=== PATIENT | female | born 1960 | race Caucasian/White ===

== ENCOUNTER 2016-08-29 10:00 | Outpatient (CLI) | payer MEDICARE, MEDICAID ==
[~2016-08-29] VITALS: Ht 160 cm; Wt 113.4 kg
[~2016-08-29 10:00] MED LIST: ASP325TEC PO; CYCL10TA9 PO; ERGO400T3 PO; GARL1TAB PO; HYDR-3812 PO; LVT.15T PO; METF500T4 PO; NAPR-243 PO; OMEG300C3 PO; PRD20T PO
[2016-08-29] MEDS ORDERED: OMG1KC PO (10:20)
[2016-08-29] MEDS ORDERED: ASPI-586 PO (10:20)
[2016-08-29] MEDS ORDERED: LEVO175T5 PO (10:20)
== END 2016-08-29 10:21 ==
LOC: PREOP 10:00
PROVIDERS: ATTEND Surgery Pediatric Surgery
DX: Z01.818 Encounter for other preprocedural examination (principal); Z12.11 Encounter for screening for malignant neoplasm of colon

== ENCOUNTER 2016-08-30 09:26 | Day surgery (SDC) | payer MEDICARE, MEDICAID ==
[~2016-08-30] VITALS: Ht 160 cm; Wt 113.4 kg
[~2016-08-30 09:26] MED LIST changes: +ASPI-586 PO; +LEVO175T5 PO; +OMG1KC PO
[2016-08-30 09:35] VITALS: BP 155/96
--- NOTE | 2016-08-30 09:41 | Conscious Sedation/ASA ---
Conscious Sedation Pre-Proced Time Reviewed: 09:40 ASA Class: 2 Airway Mallampati Classification: (grayling appropriate class) I. II. III, IV Lungs Heart ASA score ASA 1: a normal healthy patient ASA 2: a patient with a mild systemic disease (mid diabetes, controlled hypertension, obesity ASA 3: a patient with a severe systemic disease that limits activity (angina , COPD, prior Myocardial infarction) ASA 4: a patient with an incapacitating disease that is a constant threat to life (CHF, renal failure) ASA 5: a moribund patient not expected to survive 24 hrs. (ruptured aneurysm) ASA 6: a declared brain patient whose organs are being harvested. For emergent operations, add the letter E after the classification Grade 2 Sedation Plan: Analgesia, Amnesia, Plan communicated to team members, Discussed options with patient/fam, Discussed risks with patient/fam Note The patient is an appropriate candidate to undergo the planned procedure, sedation, and anesthesia. The patient immediately re-assessed prior to indication. SOFIA DIEZ MD Aug 30, 2016 9:41 am
--- NOTE | 2016-08-30 09:42 | Progress Note-Pre Operative ---
Pre-Operative Progress Note H&P Reviewed The H&P was reviewed, patient examined and no changes noted. Date H&P Reviewed: Aug 30, 2016 Time H&P Reviewed: 09:40 Pre-Operative Diagnosis: screening colonoscopy SOFIA DIEZ MD Aug 30, 2016 9:42 am
[2016-08-30] MEDS ORDERED: NALOXONE 0.4 MG/ML 1 ML (NARCAN) VIAL IVP PRN (09:45)
[2016-08-30] MEDS ORDERED: NS IV 500 ML 500 ML IV ONE (09:45)
[2016-08-30] MEDS ORDERED: morphine INJ 10 MG/ML 1ML (SYR OR VIAL) IV PRN (09:45)
[2016-08-30] MEDS ORDERED: ONDANSETRON 4 MG/2 ML (SDV) Z0FRAN IV PRN (09:45)
[2016-08-30] MEDS ORDERED: ACETAMINOPHEN 325 MG TABLET/CAPLET (TYLENOL) PO PRN (09:45)
[2016-08-30] MEDS ORDERED: HYDROcodone/APAP 5 MG/325 MG (LORTAB) TAB PO PRN (09:45)
[2016-08-30] MEDS ORDERED: FLUMAZENIL (ROMAZICON) 0.1 MG/ML 5 ML VIAL INJ PRN (09:45)
[2016-08-30] MEDS ORDERED: fentaNYL INJECTION 100 MCG/2 ML AMP ONE ×3 (10:09→10:33)
[2016-08-30] MEDS ORDERED: MIDAZOLAM 2 MG/2 ML (VERSED) VIAL ONE ×8 (10:09→10:34)
[2016-08-30] MEDS ORDERED: LIDOCAINE JELLY 2% (XYLOCAINE) 5 ML TUBE ONE (10:09)
[2016-08-30] MEDS: MIDAZOLAM 2 MG/2 ML (VERSED) VIAL IVP PRN ×5 (10:25→10:44)
[2016-08-30] MEDS: fentaNYL INJECTION 100 MCG/2 ML AMP IVP PRN ×4 (10:26→10:46)
[2016-08-30] MEDS ORDERED: LIDOCAINE 4% INJ (XYLOCAINE) 5ML AMP TOP ONE (11:15)
--- NOTE | 2016-08-30 11:20 | Progress Note-Post Operative ---
Post-Operative Progess Note Surgeon (s)/Automobile Accessories Installer (s) Surgeon SOFIA DIEZ MD Automobile Accessories Installer: none Pre-Operative Diagnosis screening colonoscopy Post-Operative Diagnosis chronic stage 2 ext and int hemorrhoids. Post-Op Procedure Note Date of Procedure: Aug 30, 2016 Name of Procedure Performed: Colonoscopy Description of the Procedure: colonoscopy Findings of the Procedure . Anesthesia Type CS Estimated blood loss (mL): minimal Specimen(s) collected/removed . SOFIA DIEZ MD Aug 30, 2016 11:20 am
--- NOTE | 2016-08-30 11:21 | Discharge Inst-Surgical ---
D/C Lap Instructions-CHARY Follow Up 10 years Activity as tolerated High Fiber Diet 25g or more per day Avoid Alcohol, Caffeine, Spicy [place] and Acid foods. Drink 64 fluid oz or more of fluids per day. Symptoms to Report: Fever over 101 degree F, Nausea/Vomiting If any problems/questions: Contact your physician or go to Emergency Room SOFIA DIEZ MD Aug 30, 2016 11:21 am
[2016-08-30 11:25] VITALS: BP 105/57
[2016-08-30 11:55] VITALS: BP 128/82
[2016-08-30 12:05] VITALS: BP 128/82
--- NOTE | 2016-08-31 06:31 | OPERATIVE REPORT ---
PROCEDURE PHYSICIAN: SOFIA MYLES DATE OF PROCEDURE: 08/30/2016 ATTENDING AUTOMATIC CENTRIFUGAL STATION OPERATOR: Darcy Munoz APRN. PREOPERATIVE DIAGNOSIS: Screening colonoscopy. POSTOPERATIVE DIAGNOSES: 1. Chronic, stage II external and internal hemorrhoids. 2. The remainder of the rectum and colon were normal. PROCEDURE: Colonoscopy. SURGEON: Dr. Myles. ANESTHESIA: Conscious sedation. ESTIMATED BLOOD LOSS: Minimal. FINDINGS: 1. Chronic, stage II external and internal hemorrhoids, not actively edematous, nor inflamed and no bleeding. 2. The remainder of the rectum and colon were normal. There were no polyps identified. DISPOSITION: The patient tolerated procedure well. Ms. Murtaza Kat is a 56-year-old female in need of a screening colonoscopy. She has not had a colonoscopy up to this point in her life. She reports for the most part, she does not have any major issues with diarrhea nor constipation and does have a bowel movement on a regular basis. She also does not report any red blood per rectum nor any dark tarry stools. She also does not report any family history of colon cancer. PROCEDURE: The patient was brought to the endoscopy suite, laid in the left lateral decubitus position. After adequate IV pain and sedative medications and conscious sedation anesthesia, a digital rectal examination was performed. Mild chronic, stage II external and internal hemorrhoids were identified which were not actively edematous, nor inflamed and no bleeding. Normal sphincter tone was felt and there were no palpable masses. The endoscope was then intubated and the anus and the rectum gently insufflated. The endoscope was then advanced through the valves of [place] the rectum with no polyps or any neoplasms identified. We then proceeded through the sigmoid colon where no diverticulosis identified. The endoscope was then advanced to the remainder of the descending, transverse, and ascending colon to the cecum. These segments were normal as well. There were no polyps or any neoplasms identified throughout the colon or rectum. The endoscope was then slowly withdrawn while taking a second look and suctioning of residual air with no additional findings. The patient tolerated the procedure well. We will have her continue with medical management with a high fiber diet with at least 25 grams of fiber per day to promote soft stools on a daily basis. She does not need another colonoscopy for another 10 years; however, sooner if any problems arise. Job ID: [id number] Dictated Date: 08/30/2016 11:03:05 Shoe Repairer Helper Date: 08/31/2016 06:26:50 / gonzález
--- OUTSIDE RECORDS SUMMARY | 2016-09-24 04:16 | XMS REPORT | Continuity of Care Document ---
Author Author [facility] Organization [facility] Address Unknown Phone Unavailable Care Team Providers Care It Consultant Name Role Phone KEYA COOK DO PP Insurance Providers Payer Name Policy Number Subscriber Name Relationship Medicaid [place] [id number] Ermelinda Powers Tawny Self / Same As Patient Wps Medicare [id number] Ermelinda Powers S Self / Same As Patient Advance Directives Directive Response Recorded Date Advance Directives N 11/30/12 12:55pm Problems No Known Problems or Medical conditions. Social History History Response Recorded Date/Time Alcohol Use Denies Use 11/30/12 12:55pm Recreational Drug Use N 11/30/12 12:55pm Allergies, Adverse Reactions, Alerts Allergen Type Severity Reaction Last Updated No Known Drug Allergies 11/30/12 Medications Medication Dose Units Route Sig Qty Days Naproxen (Naprosyn) 1 Each PO TID PRN 20 Cyclobenzaprine HCl (Cyclobenzaprine Hcl) 1 Each PO Q8HR PRN 15 Aspirin (Aspirin Ec 325 Mg) 325 Mg PO DAILY Levothyroxine Sodium (Levothyroxine 150 Mcg Tab) 150 Mcg PO DAILY Response Recorded Date/Time Status not known Unknown Results Test Date Result Interp. Ref. Range BUN/Creatinine Ratio December 18, 2007 12:45pm 12 - Basophils # (Auto) December 18, 2007 12:45pm 0.0 10^3/uL N 0.0-0.1 Basophils (%) (Auto) December 18, 2007 12:45pm 0 % N 0-10 Blood Urea Nitrogen December 18, 2007 12:45pm 12 MG/DL N 7-18 Calcium Level December 18, 2007 12:45pm 8.7 MG/DL N 8.5-10.1 Carbon Dioxide Level December 18, 2007 12:45pm 26 MMOL/L N 21-32 Chloride Level December 18, 2007 12:45pm 106 MMOL/L N 101-110 Cholesterol Level October 10, 2005 11:35am 212 MG/DL H -200 Creatinine December 18, 2007 12:45pm 1.0 MG/ DL N 0.6-1.3 Eosinophils # (Auto) December 18, 2007 12:45pm 0.1 10^3/uL N 0.0-0.3 Eosinophils (%) (Auto) December 18, 2007 12:45pm 1 % N 0-10 Glucose Level December 18, 2007 12:45pm 111 MG/DL N 70-126 HDL Cholesterol October 10, 2005 11:35am 36 MG/ML N 35-60 Hematocrit December 18, 2007 12:45pm 37 % N 35-52 Hemoglobin December 18, 2007 12:45pm 12.3 G/ DL N 11.5-16.0 Hemoglobin A1c October 10, 2005 11:35am 6.2 % - LDL Cholesterol October 10, 2005 11:35am 160 MG/DL H 0-129 Lymphocytes # (Auto) December 18, 2007 12:45pm 1.1 X 10^3 N 1.0-4.0 Lymphocytes (%) (Auto) December 18, 2007 12:45pm 9 % L 12-44 Mean Corpuscular Hemoglobin December 18, 2007 12:45pm 29 PG N 25-34 Mean Corpuscular Hemoglobin Concent December 18, 2007 12:45pm 33 G/DL N 32-36 Mean Corpuscular Volume December 18, 2007 12:45pm 88 FL N 80-99 Mean Platelet Volume December 18, 2007 12:45pm 9.9 FL N 7.4-10.4 Monocytes # (Auto) December 18, 2007 12:45pm 0.7 X 10^3 N 0.0-1.0 Monocytes (%) (Auto) December 18, 2007 12:45pm 5 % N 0-12 Neutrophils # (Auto) December 18, 2007 12:45pm 11.3 X 10^3 H 1.8-7.8 Neutrophils (%) (Auto) December 18, 2007 12:45pm 85 % H 42-75 Platelet Count December 18, 2007 12:45pm 312 10^3/uL N 130-400 Potassium Level December 18, 2007 12:45pm 4.2 MMOL/L N 3.6-5.0 Red Blood Count December 18, 2007 12:45pm 4.25 10^6/uL L 4.35-5.85 Red Cell Distribution Width December 18, 2007 12:45pm 14.2 % N 10.0-14.5 Sodium Level December 18, 2007 12:45pm 142 MMOL/L N 135-145 Thyroid Stimulating Hormone (TSH) November 15, 2006 4:55pm 105.01 UIU/ML PH 0.34- 5.60 Thyroxine (T4) November 15, 2006 4:55pm 4.6 l UG/DL - Total Triiodothyronine November 15, 2006 4:55pm 1.2 NG/ML - Triglycerides Level October 10, 2005 11:35am 81 MG/DL N 30.0-150.0 Urine Bacteria December 18, 2007 12:15pm Large H - Urine Bilirubin December 18, 2007 12:15pm Negative - Urine Casts December 18, 2007 12:15pm None - Urine Clarity December 18, 2007 12:15pm Slightly cloudy - Urine Color December 18, 2007 12:15pm Yellow - Urine Crystals December 18, 2007 12:15pm None - Urine Culture Indicated December 18, 2007 12:15pm Yes - Urine Glucose (UA) December 18, 2007 12:15pm Negative - Urine Ketones December 18, 2007 12:15pm Negative - Urine Leukocyte Esterase December 18, 2007 12:15pm 2+ H - Urine Mucus December 18, 2007 12:15pm Negative - Urine Nitrite December 18, 2007 12:15pm Positive H - Urine Protein December 18, 2007 12:15pm Negative - Urine RBC December 18, 2007 12:15pm 10-20 / HPF - Urine Specific [place] December 18, 2007 12:15pm 1.010 L - Urine Squamous Epithelial Cells December 18, 2007 12:15pm 0-2 - Urine Urobilinogen December 18, 2007 12:15pm Normal MG/DL - Urine WBC December 18, 2007 12:15pm 50-100 / HPF H - Urine pH December 18, 2007 12:15pm 6.0 - VLDL Cholesterol October 10, 2005 11:35am 16 MG/DL N 5-40 White Blood Count December 18, 2007 12:45pm 13.2 10^3/uL H 4.3-11.0 Estimat Glomerular Filtration Rate December 18, 2007 12:45pm > 60 - Urine RBC (Auto) December 18, 2007 12:15pm 4 + H - Procedures Procedure Code Date Urine Culture 12/18/07 Encounters Encounter Location Date/Time Registered Emergency Room [facility] 11/30/12 12:49pm Departed Emergency Room [facility] 12 :00am
--- OUTSIDE RECORDS SUMMARY | 2016-09-24 04:16 | XMS REPORT | Continuity of Care Document ---
Author Author [facility] Organization [facility] Address Unknown Phone Unavailable Allergies Active Description Code Type Severity Reaction Onset Reported/Identified Relationship to Patient Clinical Status Yes No Known Drug Allergies [id number] Drug Allergy Unknown N/ A 11/30/2012 Yes prednisone [id number] Drug Allergy Unknown RASH 08/29/2016 Medications Problems Date Dx Coded Attending Type Code Diagnosis Diagnosed By 11/30/2012 TEJAS ANGULO DO Ot 840.9 SPRAIN SHOULDER/ARM NOS 11/30/2012 TEJAS ANGULO DO Ot 959.2 SHLDR/UPPER ARM INJ NOS 11/30/2012 TEJAS ANGULO DO Ot E000.8 OTHER EXTERNAL CAUSE STATUS 11/30/2012 TEJAS ANGULO DO Ot E888.9 FALL NOS 01/09/2016 SO GALLARDO Ot M54.2 CERVICALGIA 01/09/2016 SO GALLARDO Ot S16.1XXA STRAIN OF MUSCLE, FASCIA AND TENDON AT N 01/09/2016 SO GALLARDO Ot X58.XXXA EXPOSURE TO OTHER SPECIFIED FACTORS, INI 01/09/2016 SO GALLARDO Ot Y93.B9 ACTIVITY, OTHER INVOLVING MUSCLE STRENGT 01/09/2016 SO GALLARDO Ot Y99.8 OTHER EXTERNAL CAUSE STATUS 01/11/2016 SO GALLARDO Ot M54.2 CERVICALGIA 01/11/2016 SO GALLARDO Ot S16.1XXA STRAIN OF MUSCLE, FASCIA AND TENDON AT N 01/11/2016 SO GALLARDO Ot X58.XXXA EXPOSURE TO OTHER SPECIFIED FACTORS, INI 01/11/2016 SO GALLARDO Ot Y93.B9 ACTIVITY, OTHER INVOLVING MUSCLE STRENGT 01/11/2016 SO GALLARDO Ot Y99.8 OTHER EXTERNAL CAUSE STATUS 01/24/2016 SO GALLARDO Ot M54.2 CERVICALGIA 01/24/2016 SO GALLARDO Ot S16.1XXA STRAIN OF MUSCLE, FASCIA AND TENDON AT N 01/24/2016 SO GALLARDO Ot X58.XXXA EXPOSURE TO OTHER SPECIFIED FACTORS, INI 01/24/2016 SO GALLARDO Ot Y93.B9 ACTIVITY, OTHER INVOLVING MUSCLE STRENGT 01/24/2016 SO GALLARDO Ot Y99.8 OTHER EXTERNAL CAUSE STATUS 03/30/2016 MADL, TERESA L DEVELOPMENT MECHANIC Ot N64.4 MASTODYNIA 03/30/2016 MADL, TERESA L DEVELOPMENT MECHANIC Ot N64.4 MASTODYNIA 04/04/2016 MADL, TERESA L DEVELOPMENT MECHANIC Ot N64.4 MASTODYNIA 04/06/2016 MADL, TERESA L DEVELOPMENT MECHANIC Ot N64.4 MASTODYNIA 05/30/2016 MADL, TERESA L DEVELOPMENT MECHANIC Ot N64.4 MASTODYNIA 08/29/2016 SOFIA DIEZ MD Ot Z01.818 ENCOUNTER FOR OTHER PREPROCEDURAL EXAMIN 08/29/2016 SOFIA DIEZ MD Ot Z12.11 ENCOUNTER FOR SCREENING FOR MALIGNANT NE 08/29/2016 SOFIA DIEZ MD Ot Z01.818 ENCOUNTER FOR OTHER PREPROCEDURAL EXAMIN 08/29/2016 SOFIA DIEZ MD Ot Z12.11 ENCOUNTER FOR SCREENING FOR MALIGNANT NE 08/29/2016 SOFIA DIEZ MD Ot Z01.818 ENCOUNTER FOR OTHER PREPROCEDURAL EXAMIN 08/29/2016 SOFIA DIEZ MD Ot Z12.11 ENCOUNTER FOR SCREENING FOR MALIGNANT NE 08/29/2016 SOFIA DIEZ MD Ot Z01.818 ENCOUNTER FOR OTHER PREPROCEDURAL EXAMIN 08/29/2016 SOFIA DIEZ MD Ot Z12.11 ENCOUNTER FOR SCREENING FOR MALIGNANT NE 08/30/2016 MADL, TERESA L DEVELOPMENT MECHANIC Ot N64.4 MASTODYNIA 08/30/2016 SOFIA DIEZ MD Ot E11.9 TYPE 2 DIABETES MELLITUS WITHOUT COMPLIC 08/30/2016 SOFIA DIEZ MD Ot K64.1 SECOND DEGREE HEMORRHOIDS 08/30/2016 SOFIA DIEZ MD Ot Z12.11 ENCOUNTER FOR SCREENING FOR MALIGNANT NE 08/30/2016 SOFIA DIEZ MD Ot Z01.818 ENCOUNTER FOR OTHER PREPROCEDURAL EXAMIN 08/30/2016 SOFIA DIEZ MD Ot Z12.11 ENCOUNTER FOR SCREENING FOR MALIGNANT NE 08/31/2016 SOFIA DIEZ MD Ot E11.9 TYPE 2 DIABETES MELLITUS WITHOUT COMPLIC 08/31/2016 SOFIA DIEZ MD Ot K64.1 SECOND DEGREE HEMORRHOIDS 08/31/2016 SOFIA DIEZ MD Ot Z12.11 ENCOUNTER FOR SCREENING FOR MALIGNANT NE 09/05/2016 TERESA JARRETT Ot N64.4 MASTODYNIA Procedures Results Test Result Range Urine beta human chorionic gonadotropin (hCG) measurement - 08/30/16 09:30 Urine beta human chorionic gonadotropin (hCG) measurement NEGATIVE NEGATIVE Capillary blood glucose measurement by glucometer (mass/volume) - 08/30/16 09: 50 Capillary blood glucose measurement by glucometer (mass/volume) 115 mg/dL 70-110 Encounters ACCT No. Visit Date/Time Discharge Status Pt. Type Provider Facility Loc./Unit Complaint [id number] 08/30/2016 09:26:00 2016 12:10:00 DIS Outpatient SOFIA DIEZ MD [facility] ENDO SCREENING [id number] 08/29/2016 10:00:00 2016 10:21:00 DIS Outpatient SOFIA DIEZ MD [facility] PREOP SCREENING [id number] 01/09/2016 17:32:00 2015 20:02:00 DIS Emergency SO GALLARDO [facility] ER LT NECK PAIN [id number] 11/30/2012 12:49:00 2012 14:42:00 DIS Emergency TEJAS ANGULO DO K [facility] ER [id number] 03/29/2016 13:18:00 ACT Outpatient TERESA JARRETTP [facility] RAD BREAST PAIN RT [id number] 03/22/2016 14:44:00 PEN Preadmit TERESA JARRETT DEVELOPMENT MECHANIC [facility] REHAB NECK AND THORACIC PAIN
== END 2016-08-30 12:10 | disposition home or self-care (01) ==
LOC: DELPENDDIS → ENDO 09:26
PROVIDERS: ATTEND Surgery Pediatric Surgery
DX: Z12.11 Encounter for screening for malignant neoplasm of colon (principal); K64.1 Second degree hemorrhoids; E11.9 Type 2 diabetes mellitus without complications
CPT/HCPCS: 82962; 84703

== ENCOUNTER → 2016-12-20 | Outpatient (CLI) | payer MEDICARE, MEDICAID ==
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
== END ==
LOC: RAD 11:40
PROVIDERS: ATTEND Nurse Practitioner Family
DX: H74.91 Unspecified disorder of right middle ear and mastoid (principal)
CPT/HCPCS: 70450

== ENCOUNTER → 2017-10-03 | Outpatient (CLI) | payer MEDICARE, MEDICAID ==
[~2017-10-03] MED LIST changes: +ACHD5005 PO; +ATOR10TA66; +AZIT250T PO; -GARL1TAB PO; +GARL1TAB2 PO; -HYDR-3812 PO; -METF500T4 PO; +METF500T5 PO
--- NOTE | 2017-10-03 14:29 | Diagnostic Imaging Report ---
INDICATION: Routine screening. COMPARISON: 03/29/2016. TECHNIQUE: Bilateral 2D and 3D screening mammography was performed with CAD. FINDINGS: Both breasts show marked parenchymal heterogeneity and increased density, limiting the sensitivity of mammography. There are scattered benign-appearing calcifications present. No spiculated mass or malignant appearing microcalcifications are seen. The axillae are unremarkable. IMPRESSION: No mammographic features suspicious for malignancy are identified. ACR BI-RADS Category 2: Benign findings. Result letter will be mailed to the patient. Note: At least 10% of breast cancer is not imaged by mammography. Dictated by: Dictated on workstation # [id number]
== END ==
LOC: RAD 09:18
PROVIDERS: ATTEND Nurse Practitioner Family
DX: Z12.31 Encounter for screening mammogram for malignant neoplasm of breast (principal)
CPT/HCPCS: 77067

== ENCOUNTER 2017-11-01 13:25 | Emergency (ER) | payer MEDICARE, MEDICAID ==
[~2017-11-01] VITALS: Ht 160 cm; Wt 105.7 kg
[~2017-11-01 13:25] MED LIST changes: -ATOR10TA66; -AZIT250T PO
[2017-11-01] MEDS ORDERED: ATOR10TA66 (13:40)
[2017-11-01] MEDS ORDERED: RT-ALBUTEROL/IPRATROPIUM 3 ML (DUONEB) VIAL INH ONE (14:15)
--- NOTE | 2017-11-01 14:55 | Diagnostic Imaging Report ---
INDICATION: Shortness of breath. EXAMINATION: Portable erect AP chest at 2:23 p.m. FINDINGS: The heart size is within normal limits although the heart does seem somewhat more prominent than noted on the prior exam of 11/30/2012. The lungs are clear. There is no sign of failure, pneumonia or a pleural effusion. The mediastinum is not widened. The osseous structures are intact. IMPRESSION: There is no evidence for active disease. Dictated by: Dictated on workstation # [id number]
--- NOTE | 2017-11-01 15:06 | ED Respiratory ---
General Chief Complaint: Respiratory Problems Stated Complaint: SOB,ASTHMA Nursing Triage Note: PMH OF ASTHMA HAS HAD COUGH AND FEELING SOA . INHALER NOT HELPING. History of Present Illness Date Seen by Provider: November 01, 2017 Time Seen by Provider: 14:00 Initial Comments 57-year-old female presents for shortness of air and nonproductive cough. She feels as though she has congestion that she's been unable to produce any phlegm. She has a history of asthma but no problems at this time. She used her Ventolin inhaler at noon today with minimal improvement in her symptoms. Timing/Duration: just prior to arrival Severity: mild Prior Episodes/Possible Cause: occasional episodes Modifying Factors: Improves With Albuterol Inhaler Associated Symptoms: chest pain/soreness, cough, shortness of breath Allergies and Home Medications Allergies Coded Allergies: prednisone (Verified Allergy, Unknown, RASH, 08/29/16) Home Medications Aspirin 81 Mg Tablet.dr, 81 MG PO DAILY, (Reported) Azithromycin 250 Mg Tablet, 250 MG PO UD TAKE 2 TABLETS TODAY, THEN TAKE 1 TABLET DAILY FOR 4 MORE DAYS Prescribed by: PHILLIP COOK on 11/01/17 1511 Garlic 1 Each Tablet, 1 EACH PO DAILY, (Reported) Levothyroxine Sodium 175 Mcg Tablet, 175 MCG PO DAILY, (Reported) Metformin HCl 500 Mg Tablet, 500 MG PO BID, (Reported) Golf 3 Polyunsat Fatty Acids 1,000 Mg Cap, 1,000 MG PO DAILY, (Reported) Patient Home Medication List Home Medication List Reviewed: Yes Review of Systems Constitutional: no symptoms reported, see HPI Respiratory: see HPI, cough, short of breath All Other Systems Reviewed Negative Unless Noted: Yes Past Ojlgola-Vfmukp-Vccfdc Hx Past Med/Social Hx: Reviewed Nursing Past Med/Soc Hx Patient Social History Alcohol Use: Denies Use Recreational Drug Use: No Smoking Status: Never a Smoker Recent Foreign Travel: No Contact w/Someone Who Travel: No Recent Infectious Disease Expo: No Recent Hopitalizations: No Immunizations Up To Date Tetanus Booster (TDap): Unknown Date of Influenza Vaccine: Mar 31, 2016 Seasonal Allergies Seasonal Allergies: Yes Past Medical History Surgeries: Yes Gallbladder Respiratory: Yes Asthma, COPD, Emphysema Cardiac: Yes Coronary Artery Disease, High Cholesterol Neurological: Yes Headaches /Migraines Reproductive Disorders: No ICE CREAM SERVER History: Menopausal Gastrointestinal: No Musculoskeletal: Yes Arthritis Endocrine: Yes Hypothyroidsim, Diabetes, Non-Insulin dep Cataract Cancer: No Psychosocial: No Integumentary: No Blood Disorders: No Family Medical History No Pertinent Family Hx Physical Exam Vital Signs Vital Signs - First Documented 11/01/17 11/01/17 13:41 14:27 Temp 98.5 Pulse 62 Resp 18 B/P (MAP) 213/123 (153) Pulse Ox 99 O2 Delivery Room Air Capillary Refill : Less Than 3 Seconds General Appearance: WD/WN, no apparent distress Eyes: Bilateral Eye Normal Inspection, Bilateral Eye PERRL, Bilateral Eye EOMI HEENT: PERRL/EOMI, normal ENT inspection, TMs normal, pharynx normal Neck: non-tender, full range of motion Respiratory: chest non-tender, no respiratory distress, no accessory muscle use , decreased breath sounds Cardiovascular: normal peripheral pulses, regular rate, rhythm, diastolic murmur Gastrointestinal: normal bowel sounds, non tender, soft Neurologic/Psychiatric: no motor/sensory deficits, alert, normal mood/affect Skin: normal color, warm/dry Progress/Results/Core Measures Suspected Sepsis Recent Fever Within 48 Hours: No Infection Criteria Present: None New/Unexplained Altered Menta: No Sepsis Screen: No Definite Risk SIRS Temperature:98.5 Pulse: 62 Respiratory Rate: 18 Blood Pressure 213 /123 Mean: 153 Results/Orders My Orders Orders - PHILLIP COOK Chest 1 View, Ap/Pa Only (11/01/17 14:14) Albuterol/Ipra Inhalation Soln (Duoneb I (11/01/17 14:15) Svn Small Volume Nebulizer (11/01/17 14:14) Medications Given in ED Current Medications Medications Dose Ordered Sig/Alejandrina Route Start Time Stop Time Status Last Admin Dose Admin Albuterol/ Ipratropium 3 ml ONCE ONCE INH 11/01/17 14:15 11/01/17 14:16 DC 11/01/17 14:26 3 ML Vital Signs/I&O 11/01/17 11/01/17 11/01/17 13:41 14:27 15:18 Temp 98.5 Pulse 62 75 Resp 18 18 B/P (MAP) 213/123 (153) 115/84 Pulse Ox 99 98 O2 Delivery Room Air Room Air Room Air Capillary Refill : Less Than 3 Seconds Blood Pressure Mean: 153 Diagnostic Imaging Diagonstic Imaging: Xray Plain Films/CT/US/NM/MRI: chest Comments NAME: [facility] REC#: [id number] PT STATUS: REG ER : 1960 PHYSICIAN: PHILLIP COOK ADMIT DATE: 11/01/17/ER Draft Date of Exam:11/01/17 CHEST 1 VIEW, AP/PA ONLY INDICATION: Shortness of breath. EXAMINATION: Portable erect AP chest at 2:23 p.m. FINDINGS: The heart size is within normal limits although the heart does seem somewhat more prominent than noted on the prior exam of 11/30/2012. The lungs are clear. There is no sign of failure, pneumonia or a pleural effusion. The mediastinum is not widened. The osseous structures are intact. IMPRESSION: There is no evidence for active disease. Dictated on workstation # [id number] Dict: 11/01/17 1439 Trans: 11/01/17 1454 [facility] [id number] Interpreted by: TED JOHNSON MD Electronically signed by: Reviewed: Reviewed by Me Departure Impression Primary Impression: Bronchitis Disposition: HOME, SELF-CARE Condition: Improved Departure-Patient Inst. Decision time for Depature: 15:00 Referrals: ABEL LONDONO DO (PCP) Primary Care Physician TERESA JARRETT (Family) Primary Care Physician Patient Instructions: Acute Bronchitis, Adult (DC) Add. Discharge Instructions: Increase water intake. Continue to use your inhaler every 4 hours. Take medication as prescribed. Follow up with your primary care provider, if you get worse or symptoms do not improve. Return to emergency department for new, urgent health care needs. All discharge instructions reviewed with patient and/or family. Voiced understanding. Scripts Azithromycin (Zithromax) 250 Mg Tablet 250 MG PO UD, #6 TAB TAKE 2 TABLETS TODAY, THEN TAKE 1 TABLET DAILY FOR 4 MORE DAYS Prov: HPILLIP COKO 11/01/17 PHILLIP COOK November 01, 2017 15:06
[2017-11-01] MEDS ORDERED: AZIT250T PO (15:11)
[2017-11-01 15:18] VITALS: BP 115/84
== END 2017-11-01 15:18 | disposition home or self-care (01) ==
LOC: EDUNIT# 13:25 → ER 13:26
DX: J40 Bronchitis, not specified as acute or chronic (principal); J43.9 Emphysema, unspecified; I25.10 Atherosclerotic heart disease of native coronary artery without angina pectoris; E78.00 Pure hypercholesterolemia, unspecified; G43.909 Migraine, unspecified, not intractable, without status migrainosus; E03.9 Hypothyroidism, unspecified; E11.9 Type 2 diabetes mellitus without complications; Z88.8 Allergy status to other drugs, medicaments and biological substances; Z79.82 Long term (current) use of aspirin; Z79.84 Long term (current) use of oral hypoglycemic drugs
CPT/HCPCS: 71045; 94640

== ENCOUNTER 2019-03-13 13:23 | Emergency (ER) | payer MEDICARE, MEDICAID ==
[~2019-03-13] VITALS: Ht 165 cm; Wt 100.0 kg
[~2019-03-13 13:23] MED LIST changes: +ATOR10TA66; +AZIT250T PO; +METF-397 PO; -METF500T5 PO
[2019-03-13] MEDS ORDERED: NS IV 1000 ML 1,000 ML ONE (13:37)
--- NOTE | 2019-03-13 13:37 | ED Cardiac General ---
History of Present Illness General Chief Complaint: Chest Pain Stated Complaint: CHEST PAIN Source: patient Exam Limitations: no limitations History of Present Illness Date Seen by Provider: Mar 13, 2019 Time Seen by Provider: 13:35 Initial Comments To ER per private vehicle from home with reports of palpitations. She denies chest pain she denies shortness of breath. This began last night she states that her pulse was very fast. She didn't come in at that time because she didn't want to wake her mother. She states it still feels like her heart is beating hard but not as bad as it was last night. She had a similar episode 8-9 months ago. She just finished an antibiotic for urinary tract infection yesterday. She continues to have suprapubic pressure. Timing/Duration: changing over time Severity: moderate Activities at Onset: none Prior CP/Workup: no prior chest pain NTG SL BUFFERER: No ASA po BUFFERER: Yes (1 baby aspirin this morning at 8 AM) Associated Systoms: No Chest Pain, No Cough, No Syncope Allergies and Home Medications Allergies Coded Allergies: prednisone (Verified Allergy, Unknown, RASH, 08/29/16) Home Medications Aspirin 81 Mg Tablet.dr, 81 MG PO DAILY, (Reported) Azithromycin 250 Mg Tablet, 250 MG PO UD TAKE 2 TABLETS TODAY, THEN TAKE 1 TABLET DAILY FOR 4 MORE DAYS Prescribed by: PHILLIP COOK on 11/01/17 1511 Garlic 1 Each Tablet, 1 EACH PO DAILY, (Reported) Levothyroxine Sodium 175 Mcg Tablet, 175 MCG PO DAILY, (Reported) Metformin HCl 500 Mg Tablet, 500 MG PO BID, (Reported) [place] 3 Polyunsat Fatty Acids 1,000 Mg Cap, 1,000 MG PO DAILY, (Reported) Patient Home Medication List Home Medication List Reviewed: Yes Review of Systems Review of Systems Constitutional: see HPI EENTM: No Symptoms Reported Respiratory: No Symptoms Reported; Denies Cough, Denies Shortness of Air Cardiovascular: See HPI; Denies Chest Pain; Irregular Heart Rate, Palpitations Gastrointestinal: See HPI; Denies Abdominal Pain, Denies Nausea Genitourinary: No Symptoms Reported Musculoskeletal: no symptoms reported Skin: no symptoms reported Psychiatric/Neurological: No Symptoms Reported Endocrine: No Symptoms Reported Hematologic/Lymphatic: No Symptoms Reported Past Czbqxwu-Fifqvz-Apswmt Hx Patient Social History Recent Hopitalizations: No Immunizations Up To Date Tetanus Booster (TDap): Unknown Date of Influenza Vaccine: Mar 31, 2016 Seasonal Allergies Seasonal Allergies: Yes Past Medical History Surgeries: Yes Gallbladder Respiratory: Yes Asthma, COPD, Emphysema Cardiac: Yes Coronary Artery Disease, High Cholesterol Neurological: Yes Headaches /Migraines Reproductive Disorders: No AIRLINE SECURITY REPRESENTATIVE History: Menopausal Gastrointestinal: No Musculoskeletal: Yes Arthritis Endocrine: Yes Hypothyroidsim, Diabetes, Non-Insulin dep Cataract Cancer: No Psychosocial: No Integumentary: No Blood Disorders: No Family Medical History No Pertinent Family Hx Physical Exam Vital Signs Vital Signs - First Documented 03/13/19 13:25 O2 Delivery Room Air Capillary Refill : Height, Weight, BMI Height: 5'3.00" Weight: 233lbs. 0.0oz. [id number]; 44.3 BMI Method:Stated General Appearance: No Apparent Distress, WD/WN HEENT: PERRL/EOMI, TMs Normal Respiratory: No Accessory Muscle Use, No Respiratory Distress Cardiovascular: Regular Rate, Rhythm, Normal Peripheral Pulses Gastrointestinal: Normal Bowel Sounds, Non Tender, Soft; No Tenderness Extremity: Normal Capillary Refill, Normal Inspection Neurologic/Psychiatric: Alert, Oriented x3 Skin: Normal Color, Warm/Dry Progress/Results/Core Measures Results/Orders Lab Results Laboratory Tests Test 03/13/19 13:30 03/13/19 14:47 Range/Units White Blood Count 9.1 4.3-11.0 10^3/uL Red Blood Count 4.52 4.35-5.85 10^6/uL Hemoglobin 13.5 11.5-16.0 G/DL Hematocrit 41 35-52 % Mean Corpuscular Volume 90 80-99 FL Mean Corpuscular Hemoglobin 30 25-34 PG Mean Corpuscular Hemoglobin Concent 33 32-36 G/DL Red Cell Distribution Width 13.0 10.0-14.5 % Platelet Count 316 130-400 10^3/uL Mean Platelet Volume 10.5 H 7.4-10.4 FL Neutrophils (%) (Auto) 59 42-75 % Lymphocytes (%) (Auto) 29 12-44 % Monocytes (%) (Auto) 8 0-12 % Eosinophils (%) (Auto) 4 0-10 % Basophils (%) (Auto) 0 0-10 % Neutrophils # (Auto) 5.3 1.8-7.8 X 10^3 Lymphocytes # (Auto) 2.6 1.0-4.0 X 10^3 Monocytes # (Auto) 0.8 0.0-1.0 X 10^3 Eosinophils # (Auto) 0.4 H 0.0-0.3 10^3/uL Basophils # (Auto) 0.0 0.0-0.1 10^3/uL Sodium Level 138 135-145 MMOL/L Potassium Level 4.6 3.6-5.0 MMOL/L Chloride Level 106 98-107 MMOL/L Carbon Dioxide Level 23 21-32 MMOL/L Anion Gap 9 5-14 MMOL/L Blood Urea Nitrogen 16 7-18 MG/DL Creatinine 0.95 0.60-1.30 MG/DL Estimat Glomerular Filtration Rate 60 BUN/Creatinine Ratio 17 Glucose Level 164 H 70-105 MG/DL Calcium Level 10.0 8.5-10.1 MG/DL Corrected Calcium 10.2 H 8.5-10.1 MG/DL Magnesium Level 1.8 1.6-2.4 MG/DL Total Bilirubin 0.6 0.1-1.0 MG/DL Aspartate Amino Transf (AST/SGOT) 60 H 5-34 U/L Alanine Aminotransferase (ALT/SGPT) 64 H 0-55 U/L Alkaline Phosphatase 194 H 40-136 U/L Myoglobin 37.4 10.0-92.0 NG/ML Troponin I < 0.028 <0.028 NG/ML B-Type Natriuretic Peptide 99.9 <100.0 PG/ML Total Protein 7.9 6.4-8.2 GM/DL Albumin 3.8 3.2-4.5 GM/DL Thyroid Stimulating Hormone (TSH) 0.27 L 0.35-4.94 UIU/ML Free Thyroxine 1.35 0.70-1.48 NG/DL Prothrombin Time 14.5 12.2-14.7 SEC INR Comment 1.1 0.8-1.4 Activated Partial Thromboplast Time 28 24-35 SEC D-Dimer 0.38 0.00-0.49 UG/ML My Orders Orders - MAXI LUU APRN Ekg Tracing (03/13/19 13:26) Cbc With Automated Diff (03/13/19 13:33) Magnesium (03/13/19 13:33) Chest 1 View, Ap/Pa Only (03/13/19 13:33) Cardiac Profile 1 (03/13/19 13:33) Comprehensive Metabolic Panel (03/13/19 13:33) Myoglobin Serum (03/13/19 13:33) Protime With Inr (03/13/19 13:33) Partial Thromboplastin Time (03/13/19 13:33) O2 (03/13/19 13:33) Monitor-Rhythm Ecg Trace Only (03/13/19 13:33) Lipid Panel (03/14/19 06:00) Ed Iv/Invasive Line Start (03/13/19 13:33) BNP (03/13/19 13:33) Aspirin Chewable Tablet (Baby Aspirin Ch (03/13/19 13:45) Fibrin Degradation Products (03/13/19 13:33) Thyroid Stimulating Hormone (03/13/19 13:37) Free T4 (Free Thyroxine) (03/13/19 13:37) Ns Iv 1000 Ml (Sodium Chloride 0.9%) (03/13/19 13:37) Ns Iv 1000 Ml (Sodium Chloride 0.9%) (03/13/19 13:45) Medications Given in ED Current Medications Medications Dose Ordered Sig/Alejandrina Route Start Time Stop Time Status Last Admin Dose Admin Aspirin 324 mg ONCE ONCE PO 03/13/19 13:45 03/13/19 13:46 DC 03/13/19 13:42 324 MG Vital Signs/I&O 03/13/19 13:25 O2 Delivery Room Air Departure Impression Primary Impression: Palpitations Disposition: 01 HOME, SELF-CARE Condition: Stable Departure-Patient Inst. Decision time for Depature: 13:37 Referrals: ABEL LONDONO DO (PCP) Primary Care Physician TERESA JARRETT (Family) Primary Care Physician VEE ASKEW MD FACP FACC CCDS Edel MITCHELL MD, BASHAR J MD Patient Instructions: Palpitations (DC) Add. Discharge Instructions: Call one of the cardiologists listed to make an appointment to be seen for follow-up. Return to ER for any concerns or worsening symptoms. All discharge instructions reviewed with patient and/or family. Voiced understanding. MAXI LUU APRN Mar 13, 2019 13:37
[2019-03-13 13:44] LABS: BASOPHILS % (AUTO) 0 % (0-10); EOSINOPHILS # (AUTO) 0.4 10^3/uL (0.0-0.3); EOSINOPHILS % (AUTO) 4 % (0-10); HEMATOCRIT 41 % (35-52); HEMOGLOBIN 13.5 G/DL (11.5-16.0); LYMPHOCYTES # (AUTO) 2.6 X 10^3 (1.0-4.0); LYMPHOCYTES % (AUTO) 29 % (12-44); MEAN CORPUSCULAR HEMOGLOBIN 30 PG (25-34); MEAN CORPUSCULAR HGB CONC 33 G/DL (32-36); MEAN CORPUSCULAR VOLUME 90 FL (80-99); MEAN PLATELET VOLUME 10.5 FL (7.4-10.4); MONOCYTES # (AUTO) 0.8 X 10^3 (0.0-1.0); MONOCYTES % (AUTO) 8 % (0-12); NEUTROPHILS # (AUTO) 5.3 X 10^3 (1.8-7.8); NEUTROPHILS % (AUTO) 59 % (42-75); PLATELET COUNT 316 10^3/uL (130-400); WHITE BLOOD COUNT 9.1 10^3/uL (4.3-11.0)
[2019-03-13] MEDS ORDERED: ASPIRIN 81 MG CHEW (CHILDREN'S ASA) PO ONE (13:45)
[2019-03-13] MEDS ORDERED: NS IV 1000 ML 1,000 ML IV SCH (13:45)
[2019-03-13 14:03] LABS: ALANINE AMINOTRANSFERASE 64 U/L (0-55); ALBUMIN 3.8 GM/DL (3.2-4.5); ALKALINE PHOSPHATASE 194 U/L (40-136); BILIRUBIN,TOTAL 0.6 MG/DL (0.1-1.0); BUN/CREATININE RATIO 17; CARBON DIOXIDE 23 MMOL/L (21-32); CHLORIDE 106 MMOL/L (98-107); CREATININE SERUM 0.95 MG/DL (0.60-1.30); GFR ESTIMATED 60; GLUCOSE 164 MG/DL (70-105); MAGNESIUM 1.8 MG/DL (1.6-2.4); POTASSIUM 4.6 MMOL/L (3.6-5.0); SODIUM 138 MMOL/L (135-145); TOTAL PROTEIN 7.9 GM/DL (6.4-8.2)
[2019-03-13 14:25] LABS: FREE T4 (FREE THYROXINE) 1.35 NG/DL (0.70-1.48)
--- NOTE | 2019-03-13 14:29 | Diagnostic Imaging Report ---
EXAMINATION: Portable erect AP chest at 2:15 p.m. INDICATION: Chest pain. FINDINGS: The heart size is within normal limits and stable when compared to 11/01/2017. The lungs are clear. There is no evidence for failure, pneumonia, or for a pleural effusion. The mediastinum is not widened. The osseous structures are intact. IMPRESSION: There is no evidence for an acute cardiopulmonary abnormality. When compared to the prior study, there has been no significant change. Dictated by: Dictated on workstation # [id number]
[2019-03-13 15:07] LABS: INR 1.1 (0.8-1.4); PROTHROMBIN TIME PATIENT 14.5 SEC (12.2-14.7)
[2019-03-13 15:55] LABS: BILIRUBIN,URINE NEGATIVE (NEGATIVE); CLARITY,URINE CLEAR; COLOR,URINE YELLOW; GLUCOSE, URINE (UA) NEGATIVE (NEGATIVE); KETONES,URINE NEGATIVE (NEGATIVE); LEUKOCYTE ESTERASE ,URINE NEGATIVE (NEGATIVE); NITRITE,URINE POSITIVE (NEGATIVE); PH,URINE 5 (5-9); PROTEIN,URINE NEGATIVE (NEGATIVE); UROBILINOGEN,URINE NORMAL (NORMAL)
[2019-03-13 16:04] LABS: BACTERIA,URINE TRACE /HPF; RBC,URINE RARE /HPF; WBC,URINE 0-2 /HPF
[2019-03-13 16:14] VITALS: BP 155/96
== END 2019-03-13 16:14 | disposition home or self-care (01) ==
LOC: EDUNIT# 13:23 → ER 13:25
DX: R00.2 Palpitations (principal); J43.9 Emphysema, unspecified; E11.9 Type 2 diabetes mellitus without complications; I25.10 Atherosclerotic heart disease of native coronary artery without angina pectoris; E78.00 Pure hypercholesterolemia, unspecified; G43.909 Migraine, unspecified, not intractable, without status migrainosus; E03.9 Hypothyroidism, unspecified; Z88.8 Allergy status to other drugs, medicaments and biological substances; Z79.82 Long term (current) use of aspirin; Z79.84 Long term (current) use of oral hypoglycemic drugs
CPT/HCPCS: 36415; 71045; 80053; 81000; 83735; 83874; 83880; 84439; 84443; 84484; 85025; 85379; 85610; 85730; 87088; 93005; 93041; 96360

== ENCOUNTER → 2019-07-22 | Outpatient (CLI) | payer MEDICARE, MEDICAID ==
[~2019-07-22] MED LIST changes: +HOLD METFORMIN - RECEIVED CONTRAST 20 ML VIAL IV SCH; +IOHEXOL 350 MG/ML 100 ML (OMNIPAQUE 350) VIAL IV ONE; +NS 100 ML (IVPB) BAG IV ONE
[2019-07-22 10:15] LABS: BUN/CREATININE RATIO 23; CREATININE SERUM 0.94 MG/DL (0.60-1.30); GFR ESTIMATED > 60
--- NOTE | 2019-07-22 11:09 | Diagnostic Imaging Report ---
INDICATION: Screening The current study was also evaluated with a Computer Aided Detection (CAD) system. 3-D Tomographic imaging was also performed. Comparison made with prior examination from 10/03/17 and 03/29/2016. FINDINGS: The fibroglandular tissue is heterogeneously dense bilaterally. There are benign type calcifications. There is no dominant mass, spiculated lesion or suspicious calcification identified. There is an unchanged well-circumscribed density in the posterior central right breast on CC projection. The skin, nipples and axilla are unremarkable. IMPRESSION: Category 2 benign. ACR BI-RADS Category 2: Benign findings. Result letter will be mailed to the patient. Note: At least 10% of breast cancer is not imaged by mammography. Dictated by: Dictated on workstation # [id number]
--- NOTE | 2019-07-22 14:37 | Diagnostic Imaging Report ---
PROCEDURE: CT abdomen and pelvis with contrast. TECHNIQUE: Multiple contiguous axial images were obtained through the abdomen and pelvis after administration of intravenous contrast. Auto Exposure Controls were utilized during the CT exam to meet ALARA standards for radiation dose reduction. INDICATION: Umbilical hernia. COMPARISON: No prior examination available for comparison. FINDINGS: The lung bases are clear. Heart size is normal. Liver is normal in size without focal lesions. Gallbladder is unremarkable. There is no biliary ductal dilatation. Spleen is normal. Pancreas and adrenal glands are unremarkable. There are some cortical scarring in the left kidney. Right kidney is normal. Aorta is nonaneurysmal. Bowel gas pattern is nonspecific. No free air. No ascites. There are no focal inflammatory changes. There is no evidence of umbilical hernia. There are mild degenerative changes in the spine. IMPRESSION: Cortical scarring in the left kidney. No evidence of umbilical hernia. No other acute abnormality in the abdomen or pelvis. Dictated by: Dictated on workstation # [id number]
== END ==
LOC: RAD 09:42
PROVIDERS: ATTEND Nurse Practitioner Family
DX: Z12.31 Encounter for screening mammogram for malignant neoplasm of breast (principal); K42.9 Umbilical hernia without obstruction or gangrene
CPT/HCPCS: 36415; 74177; 77067; 82565; 84520

== ENCOUNTER → 2020-01-14 | Outpatient (CLI) | payer MEDICARE, MEDICAID ==
[~2020-01-14] MED LIST changes: -HOLD METFORMIN - RECEIVED CONTRAST 20 ML VIAL IV SCH; -IOHEXOL 350 MG/ML 100 ML (OMNIPAQUE 350) VIAL IV ONE; -NS 100 ML (IVPB) BAG IV ONE
[2020-01-14 10:22] LABS: ALANINE AMINOTRANSFERASE 30 U/L (0-55); ALKALINE PHOSPHATASE 122 U/L (40-136); BILIRUBIN,TOTAL 0.5 MG/DL (0.1-1.0); BUN/CREATININE RATIO 22; CALCIUM 9.4 MG/DL (8.5-10.1); CARBON DIOXIDE 22 MMOL/L (21-32); CHLORIDE 109 MMOL/L (98-107); CREATININE SERUM 0.94 MG/DL (0.60-1.30); GFR ESTIMATED > 60; GLUCOSE 129 MG/DL (70-105); POTASSIUM 4.1 MMOL/L (3.6-5.0); SODIUM 140 MMOL/L (135-145); TOTAL PROTEIN 7.7 GM/DL (6.4-8.2)
--- NOTE | 2020-01-14 16:18 | Diagnostic Imaging Report ---
EXAMINATION: CT angiography aorta and lower extremity with runoffs. TECHNIQUE: Multiple contiguous axial images were obtained through the abdomen , pelvis and lower extremities after administration of intravenous contrast. 3D MIP reconstructed CTA acquisition were then performed. All CT scans use one or more of the following dose optimizing techniques: automated exposure control, MA and/or KvP adjustment based on a patient size and exam type, or iterative reconstruction. HISTORY: Pain in left calf. COMPARISON: None available. FINDINGS: Vascular findings: Abdominal aorta: No stenosis. Celiac artery: No stenosis. Superior mesenteric artery: No stenosis. Right renal artery: No stenosis. Left renal artery: No stenosis. Inferior [place]enter[place] artery: No stenosis. Right common iliac artery: No stenosis. Right external iliac artery: No stenosis. Right common femoral artery: No stenosis. Right superficial femoral artery: No stenosis. Right deep femoral artery: No stenosis. Right popliteal artery: No stenosis. Right posterior tibial artery: No stenosis. Right anterior tibial artery: No stenosis. Right peroneal artery: No stenosis. Right ankle and foot vessels: No stenosis. Left common iliac artery: No stenosis. Left external iliac artery: No stenosis. Left common femoral artery: No stenosis. Left superficial femoral artery: No stenosis. Left deep femoral artery: No stenosis. Left popliteal artery: No stenosis. Left posterior tibial artery: No stenosis. Left anterior tibial artery: No stenosis. Left peroneal artery: No stenosis. Left ankle and foot vessels: No stenosis. Other findings: The liver is normal without focal lesion. There is no biliary ductal dilation. Gallbladder is normal. Visualized portions of the pancreas are normal. Adrenal glands are normal. There is atrophy of the left kidney. No suspicious renal lesions. There is no hydronephrosis. Urinary bladder is normal. Visualized bowel is normal in caliber without obstruction or inflammation. No free fluid or air. No abdominal or pelvic lymphadenopathy. There are no suspicious osseous lesions. IMPRESSION: 1. Normal vasculature in both lower extremities. Three-vessel runoff is seen to the ankles. Dictated by: Dictated on workstation # [id number]
== END ==
LOC: RAD 09:28
DX: M79.662 Pain in left lower leg (principal)
CPT/HCPCS: 36415; 73706; 80053

== ENCOUNTER → 2020-09-24 | Outpatient (CLI) | payer MEDICARE, MEDICAID | LOC: CARD 10:47 | PROVIDERS: ATTEND Nurse Practitioner Family | DX: I48.91 Unspecified atrial fibrillation (principal) | CPT/HCPCS: 93005 ==

== ENCOUNTER 2020-10-26 09:11 | Outpatient (RCR) | payer MEDICARE, MEDICAID | END 2021-01-24 | disposition home or self-care (01) | LOC: CARD 09:11 | PROVIDERS: ATTEND Internal Medicine Cardiovascular Disease | DX: I10 Essential (primary) hypertension (principal); I34.0 Nonrheumatic mitral (valve) insufficiency; R00.1 Bradycardia, unspecified | CPT/HCPCS: 93225; 93226; 93306 ==

== ENCOUNTER → 2020-10-26 | Outpatient (CLI) | payer MEDICARE, MEDICAID ==
--- NOTE | 2020-10-26 14:50 | Diagnostic Imaging Report ---
INDICATION: 60 year-old asymptomatic postmenopausal female. COMPARISON: None available. FINDINGS: Lumbar spine: Patient was unable to tolerate the examination of the lumbar spine due to claustrophobia. LT Hip Neck: [BMD (g/cm2): 0.837] [T-Score: -1.4] [Z-Score: -1.0] LT Hip Total: [BMD (g/cm2):0.935] [T-Score:-0.6] [Z-Score: -0.5] [BMD Previous: NA] [BMD % Change: NA] RT Hip Neck: [BMD (g/cm2):0.828] [T-Score:-1.5] [Z-Score:-1.0] RT Hip Total: [BMD (g/cm2):0.961] [T-score:-0.4] [Z-Score:-0.3] [BMD Previous:NA] [BMD % Change:NA] *Indicates significant change from prior examination based on 95% confidence level. World Health Organization criteria for BMD interpretation classify patients as Normal (T-score at or above -1.0), Osteopenic (T-score between -1.0 and -2.5) or Osteoporotic (T-score at or below -2.5). LIMITATIONS AND MODIFICATION: None. IMPRESSION: 1. Osteopenia (Low bone mass). 2. Baseline examination. 3. Consider follow-up DEXA in 12-24 months to reassess bone mineral density. Dictated by: Dictated on workstation # [id number]
== END ==
LOC: RAD 09:09
PROVIDERS: ATTEND Nurse Practitioner Family
DX: M85.80 Other specified disorders of bone density and structure, unspecified site (principal); Z78.0 Asymptomatic menopausal state
CPT/HCPCS: 77080

== ENCOUNTER → 2020-12-14 | Outpatient (CLI) | payer MEDICARE, MEDICAID ==
--- NOTE | 2020-12-14 13:45 | Diagnostic Imaging Report ---
INDICATION: Injury to the right wrist. TIME OF EXAM: 12:00 p.m. 3 views of the right wrist were obtained. FINDINGS: The distal radius and ulna are intact. Carpus is intact. Metacarpals are unremarkable. No fractures are seen. IMPRESSION: No acute bony abnormality is detected. Dictated by: Dictated on workstation # [id number]
== END ==
LOC: RAD 11:51
PROVIDERS: ATTEND Family Medicine
DX: S69.91XA Unspecified injury of right wrist, hand and finger(s), initial encounter (principal); X58.XXXA Exposure to other specified factors, initial encounter
CPT/HCPCS: 73110

== ENCOUNTER → 2021-02-23 | Outpatient (CLI) | payer MEDICARE, MEDICAID ==
[~2021-02-23] MED LIST changes: +CATHETER FLUSH 10 ML SYR IV PRN
== END ==
LOC: CARD 12:30
PROVIDERS: ATTEND Internal Medicine Cardiovascular Disease
DX: I10 Essential (primary) hypertension (principal); I25.10 Atherosclerotic heart disease of native coronary artery without angina pectoris

== ENCOUNTER 2021-03-09 10:56 | Outpatient (CLI) | payer MEDICARE, MEDICAID ==
[~2021-03-09 10:56] MED LIST changes: -CATHETER FLUSH 10 ML SYR IV PRN
== END 2021-03-09 11:15 ==
LOC: SLEEP 10:56
PROVIDERS: ATTEND Physician Assistant
DX: G47.33 Obstructive sleep apnea (adult) (pediatric) (principal)
CPT/HCPCS: G0399

== ENCOUNTER → 2021-06-15 | Outpatient (CLI) | payer MEDICARE, MEDICAID ==
[~2021-06-15] MED LIST changes: +CYCL10TA25 PO
== END ==
LOC: LABNPT 06:31
PROVIDERS: ATTEND Family Medicine
DX: Z53.9 Procedure and treatment not carried out, unspecified reason (principal)